=== PATIENT | male | born 1985 ===

== ENCOUNTER 2017-12-20 11:13 | Emergency (ER) | payer OTHER ==
[~2017-12-20] VITALS: Ht 170.2 cm; Wt 59.0 kg
== END 2017-12-20 13:29 | disposition home or self-care (01) ==
LOC: ER 11:13
DX: S91.352A Open bite, left foot, initial encounter (principal); W55.01XA Bitten by cat, initial encounter; Y93.89 Activity, other specified; Y92.89 Other specified places as the place of occurrence of the external cause; Y99.8 Other external cause status